=== PATIENT | male | born 1955 | race Caucasian/White ===

== ENCOUNTER → 2020-06-16 16:06 | Outpatient (BNVA) | payer OTHER, SELFPAY | PROVIDERS: PCP Internal Medicine; Visit Provider Surgery | DX: Z76.89 Persons encountering health services in other specified circumstances (principal) ==

== ENCOUNTER → 2020-06-23 10:17 | Outpatient (BNVA) | payer OTHER, SELFPAY | PROVIDERS: PCP Internal Medicine; Referring Provider Internal Medicine; Visit Provider Surgery | DX: L72.3 Sebaceous cyst (principal); L08.9 Local infection of the skin and subcutaneous tissue, unspecified; Z76.89 Persons encountering health services in other specified circumstances ==

== ENCOUNTER → 2020-07-23 10:03 | Outpatient (BNVA) | payer MEDICARE, OTHER, SELFPAY | PROVIDERS: PCP Internal Medicine; Visit Provider Surgery | DX: Z76.89 Persons encountering health services in other specified circumstances (principal) ==

== ENCOUNTER → 2020-08-14 10:02 | Outpatient (BNVA) | payer MEDICARE, OTHER, SELFPAY | PROVIDERS: PCP Internal Medicine; Visit Provider Urology | DX: N40.0 Benign prostatic hyperplasia without lower urinary tract symptoms (principal); R97.20 Elevated prostate specific antigen [PSA]; J30.2 Other seasonal allergic rhinitis; I10 Essential (primary) hypertension; E78.00 Pure hypercholesterolemia, unspecified | CPT/HCPCS: Q3014 ==

== ENCOUNTER 2020-09-01 11:33 | Outpatient (REF) | payer MEDICARE, OTHER, SELFPAY ==
[2020-09-01 11:42] VITALS: BMI 22.6
[2020-09-01 11:44] VITALS: BP 135/93; PULSE 76; RESP 16; TEMP 36.9; O2SAT 97
--- NOTE | 2020-09-01 12:34 | PM.OP ---
Brief Operative Note Date of Service: 09/01/20 Pre-op diagnosis: elevated PSA Post-op diagnosis: same Procedure: TRUS - measure - nerve block prostate - 12 core biopsy Surgeon: Jamshid De La Fuente MD Estimated blood loss (mL): 0 Pathology: other (12 core) Condition: stable Disposition: same day
--- NOTE | 2020-09-01 12:35 | W.PM.OPN ---
Operative Note Operative Note Date of Service: 09/01/20 Narrative: Preoperative diagnosis: Elevated PSA Postoperative diagnosis: Elevated PSA Procedure: 1. transrectal ultrasound measurement of prostate 2. transrectal ultrasound-guided pudendal nerve block 3. transrectal ultrasound-guided prostate biopsy 12 core Surgeon: Dr. Jamshid De La Fuente Anesthetic: Local Indications for procedure: Elevated PSA Prostate Cancer Procedure: After informed consent was verified, the patient was brought into the procedure area and lay left-hand side down on the table. Patient identity confirmed. Perioperative antibiotics confirmed. Gel was placed per rectum Ultrasound probe was placed per rectum The prostate was measured in 3 dimensions Total volume equals 50 gm There were no cystic structures and no calcifications noted and the prostate was homogeneous in nature A ultrasound-guided pudendal nerve block was performed using 10 cc of 1% lidocaine. 8 cc was placed at the base and 2 cc of the apex. A 12 core biopsy was performed with 6 cores each side. Two cores were taken at the apex, mid and base. Cores were spaced between lateral and medial. He tolerated the procedure well. Was able to ambulate to bathroom after 5 minutes. Printed instructions regarding antibiotic use and common side effects such as low-grade temperature and bleeding were given.
[2020-09-01 12:36] VITALS: BP 153/90; PULSE 74; RESP 16; O2SAT 97
== END 2020-09-01 11:34 | disposition home or self-care (01) ==
LOC: HO.MS 11:33
PROVIDERS: PCP Internal Medicine; Visit Provider Urology
PROC: (CPT 55700; principal; 2020-09-01 12:00)
DX: C61 Malignant neoplasm of prostate (principal); R97.20 Elevated prostate specific antigen [PSA]; I10 Essential (primary) hypertension; G47.33 Obstructive sleep apnea (adult) (pediatric); I48.91 Unspecified atrial fibrillation; Z86.73 Personal history of transient ischemic attack (TIA), and cerebral infarction without residual deficits
CPT/HCPCS: 55700; 88305

== ENCOUNTER → 2020-09-08 09:04 | Outpatient (BNVA) | payer MEDICARE, OTHER, SELFPAY | PROVIDERS: PCP Internal Medicine; Visit Provider Urology | DX: Z13.89 Encounter for screening for other disorder (principal) | CPT/HCPCS: Q3014 ==

== ENCOUNTER → 2020-09-23 10:40 | Outpatient (BNVA) | payer MEDICARE, OTHER, SELFPAY | PROVIDERS: PCP Internal Medicine; Visit Provider Urology | CPT/HCPCS: Q3014 ==

== ENCOUNTER → 2020-10-02 08:58 | Outpatient (BNVA) | payer MEDICARE, OTHER, SELFPAY | PROVIDERS: PCP Internal Medicine; Visit Provider Urology | DX: C61 Malignant neoplasm of prostate (principal) | CPT/HCPCS: 96402; 99212; J9217 ==

== ENCOUNTER 2020-11-02 12:23 | Outpatient (REF) | payer MEDICARE, OTHER, SELFPAY ==
[2020-11-02 12:28] VITALS: BMI 23.3
[2020-11-02 12:29] VITALS: BP 150/75; PULSE 76; RESP 16; TEMP 36.8; O2SAT 98
[2020-11-02 13:00] VITALS: BP 129/82; PULSE 78; RESP 16; O2SAT 98
--- NOTE | 2020-11-02 13:31 | PM.OP ---
Brief Operative Note Date of Service: 11/02/20 Pre-op diagnosis: Prostate cancer Post-op diagnosis: same Procedure: Gold seed marker implant Surgeon: Jamshid De La Fuente MD Anesthesia: local Estimated blood loss (mL): 0 Pathology: none sent Condition: stable Disposition: same day
--- NOTE | 2020-11-02 13:32 | W.PM.OPN ---
Operative Note Operative Note Date of Service: 11/02/20 Narrative: Preoperative diagnosis: Prostate cancer Postoperative diagnosis: Prostate cancer Procedure: 1. Transrectal ultrasound-guided pudendal nerve block 2. Transrectal ultrasound-guided gold seed placement Surgeon: Dr. Jamshid De La Fuente Anesthetic: Local Indications for procedure: Prostate Cancer Procedure: After informed consent was verified, the patient was brought into the procedure area and lay left-hand side down on the table. Patient identity confirmed. Perioperative antibiotics confirmed. Gel was placed per rectum Ultrasound probe was placed per rectum A ultrasound-guided pudendal nerve block was performed using 10 cc of 1% lidocaine. 8 cc was placed at the base and 2 cc of the apex. 3 gold seed markers placed. 2 on the right, 1 on the left. The purpose is for triangulation. He tolerated the procedure well. Was able to ambulate to bathroom after 5 minutes. Printed instructions regarding antibiotic use and common side effects such as low-grade temperature and bleeding were given
== END 2020-11-02 12:24 | disposition home or self-care (01) ==
LOC: HO.MS 12:23
PROVIDERS: PCP Internal Medicine; Visit Provider Urology
PROC: (CPT 55876; principal; 2020-11-02 13:20)
DX: C61 Malignant neoplasm of prostate (principal); N40.0 Benign prostatic hyperplasia without lower urinary tract symptoms; I48.91 Unspecified atrial fibrillation; I10 Essential (primary) hypertension; I69.90 Unspecified sequelae of unspecified cerebrovascular disease; G47.33 Obstructive sleep apnea (adult) (pediatric); Z99.89 Dependence on other enabling machines and devices; Z79.899 Other long term (current) drug therapy; Z86.16 Personal history of COVID-19
CPT/HCPCS: 55876; 55700; A4648

== ENCOUNTER → 2021-02-05 10:18 | Outpatient (BNVA) | payer MEDICARE, OTHER, SELFPAY | PROVIDERS: PCP Internal Medicine; Visit Provider Urology | DX: C61 Malignant neoplasm of prostate (principal) | CPT/HCPCS: 51798; 99212 ==

== ENCOUNTER → 2021-05-07 08:58 | Outpatient (BNVA) | payer MEDICARE, OTHER, SELFPAY | PROVIDERS: PCP Internal Medicine; Visit Provider Urology | DX: Z13.89 Encounter for screening for other disorder (principal) | CPT/HCPCS: Q3014 ==

== ENCOUNTER → 2021-09-07 08:28 | Outpatient (BNVA) | payer MEDICARE, OTHER, SELFPAY | PROVIDERS: PCP Internal Medicine; Visit Provider Urology | DX: C61 Malignant neoplasm of prostate (principal); N40.0 Benign prostatic hyperplasia without lower urinary tract symptoms | CPT/HCPCS: Q3014 ==

== ENCOUNTER → 2022-01-07 08:18 | Outpatient (BNVA) | payer MEDICARE, OTHER, SELFPAY | PROVIDERS: PCP Internal Medicine; Visit Provider Urology | DX: C61 Malignant neoplasm of prostate (principal) | CPT/HCPCS: Q3014 ==

== ENCOUNTER → 2022-05-10 08:25 | Outpatient (BNVA) | payer MEDICARE, OTHER, SELFPAY | PROVIDERS: PCP Internal Medicine; Visit Provider Urology | DX: C61 Malignant neoplasm of prostate (principal) | CPT/HCPCS: Q3014 ==

== ENCOUNTER → 2022-09-08 09:21 | Outpatient (BNVA) | payer MEDICARE, OTHER, SELFPAY | PROVIDERS: PCP Internal Medicine; Visit Provider Urology | DX: C61 Malignant neoplasm of prostate (principal) | CPT/HCPCS: Q3014 ==

== ENCOUNTER 2023-01-26 09:26 | Outpatient (AMB) | payer MEDICARE, OTHER, SELFPAY ==
--- NOTE | 2023-01-26 11:11 | A.OFFVIS_ITS ---
Intake Intake Visit Reasons: 4M PSA(set) Allergies Seasonal Allergy (Unknown, Uncoded 09/08/22 09:21) nka HPI HPI Comments History of Present Illness Details Pete is a very pleasant male. He is a patient of Dr. Maldonado. He is seen for the following urologic conditions. - prostate cancer Telephone evaluation 15 minute consultation [facility] Video attempted 09/29 PSA 0.2, T 517, 01/29 PSA 0.1 Full recovery of testosterone Continue good PSA response 6m PSA Prostate cancer low volume favorable intermediate risk September 2020 - external beam radiation with short term [facility] Recent Labs - 04/29 PSA <0.1, T 23, 08/31 PSA 0.1 T 844, 12/29 0.1, 04/30 <0.1, 09/01 0.2, T 517 Adenocarcinoma of the prostate (T1c N0 M0, Ann score 3+4, Grade Group 2. PSA at Diagnosis 4.9 on 5AR - NCCN favorable intermediate Prostate cancer was diagnosed Dr De La Fuente 09/27 Family history brother with prostate cancer initial treatment prostatectomy with delayed failure and radiation 6 years after Last GnRH 10/02/20 Histologic type: Adenocarcinoma (acinar type) Mayer score: 3+4=7 (left mid medial), 3+3=6 (left base lateral, left base medial, left mid lateral, left apex lateral, right base lateral) Number cores positive: 6 Total number of cores: 12 % of tissue involved: Approximately 15% of all tissue examined Periprostatic fat inv.: Not identified Seminal vesicle inv.: Not identified Perineural inv.: Present LVI: Not identified Initial therapy external beam radiation with short course GnRH - Sister Margaret complete 12/28 - [address] [facility] DNA evaluation performed for mutation negative for BRCA1 and Sosa Plan on surveillance laboratories [facility] Medical History Atrial fibrillation BPH (benign prostatic hyperplasia) History of CVA with residual deficit HTN (hypertension) Hypercholesterolemia Infected sebaceous cyst Obstructive sleep apnea treated with continuous positive airway pressure (CPAP) Surgical History Hx of chest tube placement Hx of hernia repair Family History Father Stroke Mother Cancer Sister No problems noted. Sister No problems noted. Sister No problems noted. Sister No problems noted. Sister No problems noted. Sister No problems noted. Brother No problems noted. Brother No problems noted. Brother No problems noted. Brother No problems noted. Daughter No problems noted. Daughter No problems noted. Social History Alcohol intake: current Alcohol intake frequency: a few times a week Advance Directives Date on File: 09/01/20 Review of Systems Const All systems reviewed & are unremarkable except as noted in HPI and below Reports no additional complaints Resp Reports no additional complaints GI Reports no additional complaints Reports as per HPI Musc Reports no additional complaints Physical Exam Telemedicine evaluation Appropriate responses Regular breathing rate and rhythm HEENT Head: Yes normal to inspection Ears: hearing grossly normal bilaterally Eyes General: appearance normal, both eyes and all related structures Neck Neck: Yes normal visual inspection Chest Chest palpation & inspection: normal inspection of the chest Resp Effort & Inspection: normal respiratory effort and able to speak in complete sentences Assessment & Plan Assessment & Plan (1) Prostate cancer: Comment: 09/27 Favorable Intermediate EXBRT with [address] [place] [address] Code(s): C61 - Malignant neoplasm of prostate Plan Six month follow-up PSA Patient Instructions: Imaging studies, laboratory and physical exam results were discussed and revi ewed in detail. No major barriers to patient understanding were identified. An opportunity to ask questions regarding the treatment plan was provided. All questions were answered. The patient expressed understanding and agreement with the above treatment plan. The patient is aware they should contact our office by phone for worsening of their current condition or the appearance of new urologic symptoms. Compliance is encouraged with any medications and followup testing that is ordered. It is a privilege to participate in the urologic care of your patient. If you have any questions or concerns regarding treatment for the above conditions, or other urologic issues, please do not hesitate to contact me. The office telephone contact is [phone]. This note is constructed using voice recognition software. While every effort has been made to ensure accuracy surgery aid errors may have been included. Yours sincerely, Dr Jamshid De La Fuente MD, [facility] - Urology Providers of Expert, Compassionate Care for the Genitourinary System Telehealth Telehealth Location of provider rendering services: practice address Location of patient: address on file Patient Identification confirmed using: Name, : Yes Telehealth method: video Patient verbally consented to treatment: Yes Patient verbally consented to billing insurance company: Yes Patient informed of any privacy concerns related to visit: Yes Coding Level of Care Code Tele Est Pt Level 3 (26208) Diagnoses Prostate cancer C61
== END 2023-01-26 11:32 | disposition home or self-care (01) ==
LOC: HO.HUSH 09:26
PROVIDERS: PCP Internal Medicine; Visit Provider Urology
DX: C61 Malignant neoplasm of prostate (principal)
CPT/HCPCS: 99213

== ENCOUNTER → 2023-01-26 09:26 | Outpatient (BNVA) | payer MEDICARE, OTHER, SELFPAY | PROVIDERS: PCP Internal Medicine; Visit Provider Urology | DX: C61 Malignant neoplasm of prostate (principal) | CPT/HCPCS: Q3014 ==

== ENCOUNTER 2023-08-02 10:18 | Outpatient (AMB) | payer MEDICARE, OTHER, SELFPAY ==
--- NOTE | 2023-08-02 10:19 | MHC.OFFVIS ---
Intake Intake Visit Reasons: 6m/PSA(SET) Intake Note: Patient is Present for Telephone Follow Up PSA Urology Med: Tamsulsoin Antibiotic Allergy: None Blood Thinner: Eliquis Allergies Seasonal Allergy (Unknown, Uncoded 08/02/23 10:20) nka Medication List - Last Reconciled 08/02/23 by Jamshid De La Fuente MD apixaban (Eliquis) 5 mg PO BID atorvastatin 40 mg PO DAILY furosemide 20 mg PO DAILY ketorolac 0.5% 1 drp ophthalmic (eye) QID metoprolol tartrate 100 mg PO BID sodium,potassium,mag sulfates 17.5-3.13-1.6 gram 6 mL PO BID tamsulosin 0.4 mg PO DAILY HPI HPI Comments History of Present Illness Details Pete is a very pleasant male. He is a patient of Dr. Maldonado. He is seen for the following urologic conditions. - prostate cancer - lower urinary tract symptoms Telephone evaluation 15 minute consultation [facility] Video attempted 09/29 PSA 0.2, T 517, 01/29 PSA 0.1, 08/02 0.2 Full recovery of testosterone Continue good PSA response Continues tamsulosin for lower urinary tract symptoms 6m PSA Prostate cancer low volume favorable intermediate risk September 2020 - external beam radiation with short term [facility] Recent Labs - 04/29 PSA <0.1, T 23, 08/31 PSA 0.1 T 844, 12/29 0.1, 04/30 <0.1, 09/01 0.2, T 517 Adenocarcinoma of the prostate (T1c N0 M0, Ann score 3+4, Grade Group 2. PSA at Diagnosis 4.9 on 5AR - NCCN favorable intermediate Prostate cancer was diagnosed Dr De La Fuente 09/27 Family history brother with prostate cancer initial treatment prostatectomy with delayed failure and radiation 6 years after Last GnRH 10/02/20 Histologic type: Adenocarcinoma (acinar type) Ann score: 3+4=7 (left mid medial), 3+3=6 (left base lateral, left base medial, left mid lateral, left apex lateral, right base lateral) Number cores positive: 6 Total number of cores: 12 % of tissue involved: Approximately 15% of all tissue examined Periprostatic fat inv.: Not identified Seminal vesicle inv.: Not identified Perineural inv.: Present LVI: Not identified Initial therapy external beam radiation with short course GnRH - Sister Margaret complete 12/28 - [address] DNA evaluation performed for mutation negative for BRCA1 and Sosa Plan on surveillance laboratories q.6 months for 5 years [facility] Medical History Infected sebaceous cyst BPH (benign prostatic hyperplasia) Hypercholesterolemia HTN (hypertension) Obstructive sleep apnea treated with continuous positive airway pressure (CPAP) History of CVA with residual deficit Atrial fibrillation Surgical History Hx of hernia repair Hx of chest tube placement Family History Father Stroke Mother Cancer Sister No problems noted. Sister No problems noted. Sister No problems noted. Sister No problems noted. Sister No problems noted. Sister No problems noted. Brother No problems noted. Brother No problems noted. Brother No problems noted. Brother No problems noted. Daughter No problems noted. Daughter No problems noted. Social History Alcohol intake: current Alcohol intake frequency: a few times a week Advance Directives Date on File: 09/01/20 Review of Systems Const Denies chills and Denies fever(s) Card Reports no additional complaints and Denies syncope Resp Denies cough GI Denies abdominal pain and Denies heartburn Reports as per HPI and Denies change in libido Neuro Denies syncope Psych Denies change in libido Endo Denies change in libido Physical Exam Const General: cooperative, healthy appearing, comfortable and no acute distress Orientation/consciousness: patient oriented x3 HEENT Face and sinus: Yes normal facial exam Mouth: moist mucous membranes Neck Neck: Yes normal visual inspection, Yes full ROM and Yes trachea midline Chest Chest palpation & inspection: normal inspection of the chest Resp Effort & Inspection: normal respiratory effort, able to speak in complete sentences and no respiratory distress GI Inspection: Yes normal to inspection Back/Spine/Pelvis Cervical Spine: normal cervical lordosis Thoracic/Lumbar Spine: thoracic and lumbar spine normal to inspection Skin General skin exam: no rashes or lesions noted Neuro General: patient oriented x3, gait normal, tone normal and moves all extremities Extrem General: Yes normal to inspection and Yes capillary refill normal Assessment & Plan Assessment & Plan (1) BPH (benign prostatic hyperplasia): Code(s): N40.0 - Benign prostatic hyperplasia without lower urinary tract symptoms (2) Prostate cancer: Comment: 09/27 Favorable Intermediate EXBRT with [address] [place] [address] Code(s): C61 - Malignant neoplasm of prostate Plan Six-month follow-up PSA office Orders: Orders Prostate Specific Antigen 6 Months C61 - Malignant neoplasm of prostate Patient Instructions: Imaging studies, laboratory and physical exam results were discussed and reviewed in detail. No major barriers to patient understanding were identified. An opportunity to ask questions regarding the treatment plan was provided. All questions were answered. The patient expressed understanding and agreement with the above treatment plan. The patient is aware they should contact our office by phone for worsening of their current condition or the appearance of new urologic symptoms. Compliance is encouraged with any medications and followup testing that is ordered. It is a privilege to participate in the urologic care of your patient. If you have any questions or concerns regarding treatment for the above conditions, or other urologic issues, please do not hesitate to contact me. The office telephone contact is [phone]. This note is constructed using voice recognition software. While every effort has been made to ensure accuracy hydraulic blocker errors may have been included. Yours sincerely, Dr Jamshid De La Fuente MD, [facility] - Urology Providers of Expert, Compassionate Care for the Genitourinary System Telehealth Telehealth Location of provider rendering services: practice address Location of patient: address on file Patient Identification confirmed using: Name, : Yes Telehealth method: video Patient verbally consented to treatment: Yes Patient verbally consented to billing insurance company: Yes Patient informed of any privacy concerns related to visit: Yes Coding Level of Care Code Tele Est Pt Level 3 (91883) Diagnoses BPH (benign prostatic hyperplasia) N40.0 Prostate cancer C61
== END 2023-08-02 11:25 | disposition home or self-care (01) ==
LOC: HO.HUSH 10:18
PROVIDERS: PCP Internal Medicine; Visit Provider Urology
DX: N40.0 Benign prostatic hyperplasia without lower urinary tract symptoms (principal); C61 Malignant neoplasm of prostate
CPT/HCPCS: 99213

== ENCOUNTER → 2023-08-02 10:18 | Outpatient (BNVA) | payer MEDICARE, OTHER, SELFPAY | PROVIDERS: PCP Internal Medicine; Visit Provider Urology ==

== ENCOUNTER 2024-02-02 09:06 | Outpatient (AMB) | payer MEDICARE, OTHER, SELFPAY ==
--- NOTE | 2024-02-02 09:04 | A.OFFVIS_ITS ---
Intake Visit Reasons: 6M Follow Up-psa(set) Intake Note: Patient is Present for Telephone Follow Up PSA Urology Med: Tamsulsoin Antibiotic Allergy: None Blood Thinner: Eliquis Desulfurizer Hand Required: No Allergies Seasonal Allergy (Unknown, Uncoded 02/02/24 09:04) nka HPI Comments Details: Pete is a very pleasant male. He is a patient of Dr. Maldonado. He is seen for the following urologic conditions. - prostate cancer - lower urinary tract symptoms Telephone evaluation 15 minute consultation [facility] Video attempted 09/29 PSA 0.2, T 517, 01/29 PSA 0.1, 08/02 0.2, 01/30 0.2 Full recovery of testosterone Continue good PSA response Continues tamsulosin for lower urinary tract symptoms 6m PSA Prostate cancer low volume favorable intermediate risk September 2020 - external beam radiation with short term [facility] Recent Labs - 04/29 PSA <0.1, T 23, 08/31 PSA 0.1 T 844, 12/29 0.1, 04/30 <0.1, 09/01 0.2, T 517, 01/30 0.2 Adenocarcinoma of the prostate (T1c N0 M0, Haynes score 3+4, Grade Group 2. PSA at Diagnosis 4.9 on 5AR - NCCN favorable intermediate Prostate cancer was diagnosed Dr De La Fuente 09/27 Family history brother with prostate cancer initial treatment prostatectomy with delayed failure and radiation 6 years after Last GnRH 10/02/20 Histologic type: Adenocarcinoma (acinar type) Haynes score: 3+4=7 (left mid medial), 3+3=6 (left base lateral, left base medial, left mid lateral, left apex lateral, right base lateral) Number cores positive: 6 Total number of cores: 12 % of tissue involved: Approximately 15% of all tissue examined Periprostatic fat inv.: Not identified Seminal vesicle inv.: Not identified Perineural inv.: Present LVI: Not identified Initial therapy external beam radiation with short course GnRH - Sister Margaret complete 12/28 - [address] DNA evaluation performed for mutation negative for BRCA1 and Sosa Plan on surveillance laboratories q.6 months for 5 years COUNT [facility]CLUDES [facility] Medical History Infected sebaceous cyst BPH (benign prostatic hyperplasia) Hypercholesterolemia HTN (hypertension) Obstructive sleep apnea treated with continuous positive airway pressure (CPAP) History of CVA with residual deficit Atrial fibrillation Surgical History Hx of hernia repair Hx of chest tube placement Family History Father Stroke Mother Cancer Sister No problems noted. Sister No problems noted. Sister No problems noted. Sister No problems noted. Sister No problems noted. Sister No problems noted. Brother No problems noted. Brother No problems noted. Brother No problems noted. Brother No problems noted. Daughter No problems noted. Daughter No problems noted. Social History Alcohol intake: current Alcohol intake frequency: a few times a week Advance Directives Date on File: 09/01/20 Review of Systems Const All systems reviewed & are unremarkable except as noted in HPI and below Reports no additional complaints Resp Reports no additional complaints GI Reports no additional complaints Reports as per HPI Musc Reports no additional complaints Physical Exam Telemedicine evaluation Appropriate responses Regular breathing rate and rhythm HEENT Head: Yes normal to inspection Ears: hearing grossly normal bilaterally Eyes General: appearance normal, both eyes and all related structures Neck Neck: Yes normal visual inspection Chest Chest palpation & inspection: normal inspection of the chest Resp Effort & Inspection: normal respiratory effort and able to speak in complete sentences Telehealth Telehealth Telehealth Platform: [facility] Location of provider rendering services: practice address Location of patient: address on file Patient Identification confirmed using: Name, : Yes Telehealth method: video Patient verbally consented to treatment: Yes Patient verbally consented to billing insurance company: Yes Patient informed of any privacy concerns related to visit: Yes Minutes spent on Phone/Video with Pt.: 15 Assessment & Plan Assessment & Plan (1) Prostate cancer: Comment: 09/27 Favorable Intermediate EXBRT with [address] [place] [address] Code(s): C61 - Malignant neoplasm of prostate Category: Medical Plan Six-month follow-up PSA Orders: Orders Prostate Specific Antigen 6 Months C61 - Malignant neoplasm of prostate Patient Instructions: Imaging studies, laboratory and physical exam results were discussed and reviewed in detail. No major barriers to patient understanding were identified. An opportunity to ask questions regarding the treatment plan was provided. All questions were answered. The patient expressed understanding and agreement with the above treatment plan. The patient is aware they should contact our office by phone for worsening of their current condition or the appearance of new urologic symptoms. Compliance is encouraged with any medications and followup testing that is ordered. It is a privilege to participate in the urologic care of your patient. If you have any questions or concerns regarding treatment for the above conditions, or other urologic issues, please do not hesitate to contact me. The office telephone contact is [phone]. This note is constructed using voice recognition software. While every effort has been made to ensure accuracy profiler operator errors may have been included. Yours sincerely, Dr Jamshid De La Fuente MD, [facility] - Urology Providers of Expert, Compassionate Care for the Genitourinary System Coding Level of Care Code Tele Est Pt Level 3 (56969) Diagnoses Prostate cancer C61
== END 2024-02-02 09:57 | disposition home or self-care (01) ==
LOC: HO.HUSH 09:06
PROVIDERS: PCP Internal Medicine; Visit Provider Urology
DX: C61 Malignant neoplasm of prostate (principal)
CPT/HCPCS: 99213

== ENCOUNTER → 2024-02-02 09:06 | Outpatient (BNVA) | payer MEDICARE, OTHER, SELFPAY | PROVIDERS: PCP Internal Medicine; Visit Provider Urology ==

== ENCOUNTER 2024-08-06 08:34 | Outpatient (AMB) | payer MEDICARE, OTHER, SELFPAY ==
--- NOTE | 2024-08-06 08:43 | A.OFFVIS_ITS ---
Intake Visit Reasons: 6M PSA/PVR(set) Intake Note: Patient is present for 6M PSA/PVR Urology Medication:TAMSULOSIN Antibiotic Allergy:NONE Blood Thinner:APIXABAN Todays PVR:52ML'S Shipping Processor Required: No Allergies Seasonal Allergy (Unknown, Uncoded 08/06/24 08:44) nka HPI Comments Details: Pete is a very pleasant male. He is a patient of Dr. Maldonado. He is seen for the following urologic conditions. - prostate cancer - lower urinary tract symptoms Discussed potential for gross hematuria in setting of anticoagulation and radiation to bladder They would hold anticoagulation for 48 hours and push fluids Will call if episode occurs Otherwise six-month follow-up 09/29 PSA 0.2, T 517, 01/29 PSA 0.1, 08/02 0.2, 01/30 0.2, 08/03 0.2 Full recovery of testosterone Continue good PSA response Continues tamsulosin for lower urinary tract symptoms 6m PSA Prostate cancer low volume favorable intermediate risk September 2020 - external beam radiation with short term [facility] Recent Labs - 04/29 PSA <0.1, T 23, 08/31 PSA 0.1 T 844, 12/29 0.1, 04/30 <0.1, 09/01 0.2, T 517, 01/30 0.2 Adenocarcinoma of the prostate (T1c N0 M0, Cairo score 3+4, Grade Group 2. PSA at Diagnosis 4.9 on 5AR - NCCN favorable intermediate Prostate cancer was diagnosed Dr De La Fuente 09/27 Family history brother with prostate cancer initial treatment prostatectomy with delayed failure and radiation 6 years after Last GnRH 10/02/20 Histologic type: Adenocarcinoma (acinar type) Cairo score: 3+4=7 (left mid medial), 3+3=6 (left base lateral, left base medial, left mid lateral, left apex lateral, right base lateral) Number cores positive: 6 Total number of cores: 12 % of tissue involved: Approximately 15% of all tissue examined Periprostatic fat inv.: Not identified Seminal vesicle inv.: Not identified Perineural inv.: Present LVI: Not identified Initial therapy external beam radiation with short course GnRH - Sister Margaret complete 12/28 - 7800 Mina DNA evaluation performed for mutation negative for BRCA1 and Sosa Plan on surveillance laboratories q.6 months for 5 years ON LICENSE OF [facility] Medical History Infected sebaceous cyst BPH (benign prostatic hyperplasia) Hypercholesterolemia HTN (hypertension) Obstructive sleep apnea treated with continuous positive airway pressure (CPAP) History of CVA with residual deficit Atrial fibrillation Surgical History Hx of hernia repair Hx of chest tube placement Family History Father Stroke Mother Cancer Sister No problems noted. Sister No problems noted. Sister No problems noted. Sister No problems noted. Sister No problems noted. Sister No problems noted. Brother No problems noted. Brother No problems noted. Brother No problems noted. Brother No problems noted. Daughter No problems noted. Daughter No problems noted. Social History Alcohol intake: current Alcohol intake frequency: a few times a week Advance Directives Date on File: 09/01/20 Review of Systems Const Denies chills and Denies fever(s) Card Reports no additional complaints and Denies syncope Resp Denies cough GI Denies abdominal pain and Denies heartburn Reports as per HPI and Denies change in libido Neuro Denies syncope Psych Denies change in libido Endo Denies change in libido Physical Exam Const General: cooperative, healthy appearing, comfortable and no acute distress Orientation/consciousness: patient oriented x3 HEENT Face and sinus: Yes normal facial exam Mouth: moist mucous membranes Neck Neck: Yes normal visual inspection, Yes full ROM and Yes trachea midline Chest Chest palpation & inspection: normal inspection of the chest Resp Effort & Inspection: normal respiratory effort, able to speak in complete sentences and no respiratory distress GI Inspection: Yes normal to inspection Back/Spine/Pelvis Cervical Spine: normal cervical lordosis Thoracic/Lumbar Spine: thoracic and lumbar spine normal to inspection Skin General skin exam: no rashes or lesions noted Neuro General: patient oriented x3, gait normal, tone normal and moves all extremities Extrem General: Yes normal to inspection and Yes capillary refill normal Office Procedures Post Void Residual Post Residual Void Post Void Residual (PVR): 52 [id number] Void Residual by ultrasound Results AMB Urinalysis, Automated UA Leukoctes 15 Wolf/uL Last Edit by WOOD Woodson on 08/06/24 09:01 UA Nitrite Negative Last Edit by WOOD Woodson on 08/06/24 09:01 UA Urobilinogen 0.2 mg/dL Last Edit by WOOD Woodson on 08/06/24 09:0 1 UA Protein 15 mg/dL Last Edit by WOOD Woodson on 08/06/24 09:01 UA pH 6.5 Last Edit by WOOD Woodson on 08/06/24 09:01 UA Blood 200 Cristopher/uL Last Edit by WOOD Woodson on 08/06/24 09:01 UA Specific [place] 1.010 Last Edit by WOOD Woodson on 08/06/24 09: 01 UA Ketone Negative Last Edit by WOOD Woodson on 08/06/24 09:01 UA Bilirubin 0 mg/dL Last Edit by WOOD Woodson on 08/06/24 09:01 UA Glucose 0 mg/dL Last Edit by WOOD Woodson on 08/06/24 09:01 Results Reviewed Results Reviewed: Laboratory Last Values Urine pH (Auto) 6.5 08/06/24 09:00 Specific [place] (Auto) 1.010 08/06/24 09:00 Urine Protein (Auto) 15 mg/dL 08/06/24 09:00 Glucose (UA)(Auto) 0 mg/dL 08/06/24 09:00 Urine Ketones (Auto) Negative 08/06/24 09:00 Urine Blood (Auto) 200 Cristopher/uL 08/06/24 09:00 Urine Nitrite (Auto) Negative 08/06/24 09:00 Urine Bilirubin (Auto) 0 mg/dL 08/06/24 09:00 Urine Urobilinogen (Auto) 0.2 mg/dL 08/06/24 09:00 Leukocyte Esterase (Auto) 15 Wolf/uL 08/06/24 09:00 Assessment & Plan Assessment & Plan (1) Prostate cancer: Comment: 09/27 Favorable Intermediate EXBRT with [address] [place] [address] Code(s): C61 - Malignant neoplasm of prostate Category: Medical Plan Six-month follow-up PSA office Orders: Orders AMB Urinalysis Automated Today Z13.9 - Encounter for screening, unspecified Prostate Specific Antigen 6 Months C61 - Malignant neoplasm of prostate Patient Instructions: Imaging studies, laboratory and physical exam results were discussed and reviewed in detail. No major barriers to patient understanding were identified. An opportunity to ask questions regarding the treatment plan was provided. All questions were answered. The patient expressed understanding and agreement with the above treatment plan. The patient is aware they should contact our office by phone for worsening of their current condition or the appearance of new urologic symptoms. Compliance is encouraged with any medications and followup testing that is ordered. It is a privilege to participate in the urologic care of your patient. If you have any questions or concerns regarding treatment for the above conditions, or other urologic issues, please do not hesitate to contact me. The office telephone contact is [phone]. This note is constructed using voice recognition software. While every effort has been made to ensure accuracy military aircraft designer errors may have been included. Yours sincerely, Dr Jamshid De La Fuente MD, [facility] - Urology Providers of Expert, Compassionate Care for the Genitourinary System Coding Level of Care Code Est Pt Level 3 (91397) Diagnoses Prostate cancer C61 CPT Codes Post Residual Void - PVR CPT Code: 28184-Doej Void Residual by ultrasound ([id number])
--- OUTSIDE RECORDS SUMMARY | 2024-08-06 08:55 | XMS_ITS | Clinical Summary ---
Author Organization [facility] Address [address] [place] [address] Care Team Providers Care Foam Fabricator Name Role Phone Hever Maldonado Primary Care Provider Allergies No known active allergies Medications amoxicillin-cla vulanate (AUGMENTIN) 875-125 mg tablet Take 875 mg by mouth 2 times a day. 0 Active azithromycin (ZITHROMAX) 250 mg tablet 0 Active cephalexin (KEFLEX) 500 mg capsule TK 1 C PO TID 0 Active ciprofloxacin (CIPRO) 500 mg tablet TAKE 1 TABLET BY MOUTH TWICE DAILY FOR 4 DAYS. START ANTIBIOTICS DAY BEFORE PROCEDURE 1 Active digoxin (LANOXIN) 125 mcg (0.125 mg) tablet Take 125 mcg by mouth daily. 0 Active doxycycline hyclate (VIBRAMYCIN) 100 mg capsule TK 1 C PO BID 0 Active finasteride (PROSCAR) 5 mg tablet Take 5 mg by mouth daily. 1 Active Suprep Bowel Prep Kit solution TAKE 6 OUNCES BY MOUTH TWICE DAILY FOLLOW INSTRUCTIONS PROVIDED BY DOCTOR IN OFFICE 1 Active Social History Tobacco Use Types Packs/Day Years Used Date Smoking Tobacco: Never Assessed Sex and Gender Information Value Date Recorded Sex Assigned at Not on file Legal Sex Male 8:31 AM EST Gender Identity Not on file Sexual Orientation Not on file Last Filed Vital Signs Vital Sign Reading Time Taken Comments Blood Pressure 130/71 09/11/2020 8:43 AM EST Pulse 69 09/11/2020 8:43 AM EST Temperature 36.8 ??C (98.2 ??F) 09/11/2020 8:43 AM ES T Respiratory Rate 16 09/11/2020 8:43 AM EST Oxygen Saturation 98% 09/11/2020 8:43 AM EST Inhaled Oxygen Concentration - - Weight 77 kg (169 lb 12.8 oz) 09/11/2020 8:43 AM EST Height 181.6 cm (5' 11.5 ) 09/11/2020 8:43 AM ES T Body Mass Index 23.35 09/11/2020 8:43 AM EST Plan of Treatment Health Maintenance Due Date Last Done Comments Cologuard 1955 Colon Cancer Screening 1955 Colonoscopy 1955 FOBT / Fit Test 1953 Sigmoidoscopy 1953 DTaP,Tdap,and Td Vaccines (1 - Tdap) 1975 Zoster Vaccines (1 of 2) 2003 Pneumococcal Vaccine: 65+ Ye ars (1 of 1 - PCV) 2018 COVID-19 Vaccine (2 - 2023-2 5 season) 2024 09/05/2020 Influenza Vaccine (#1) 2024 04/29/2017 Alcohol/Substance Use Screening 07/10/2024 Health Care Proxy Review 07/10/2024 RSV Vaccine (60+ years old a nd patients) (1 - 1-dose 75+ series) 2028 Hepatitis B Vaccines Aged Out No long er eligible based on patient's age to complete this topic Insurance MEDICARE [facility] Care Teams Foam Fabricator Relationship Specialty Start Date End Date Hever Maldonado PCP - General Internal Medicine 09/07/20
--- OUTSIDE RECORDS SUMMARY | 2024-08-06 08:55 | XMS_ITS | Referral Summary ---
Author Organization [facility] Address [address] [place] [address] Care Team Providers Care Steam Fitter Supervisor Name Role Phone Hever Maldonado Primary Care Provider [phone] Allergies No known active allergies Medications amoxicillin-cla [...] 09/11/2020 8:43 AM EST Plan of Treatment Not on file Insurance MEDICARE [facility] Care Teams Steam Fitter Supervisor Relationship Specialty Start Date End Date Hever Maldonado PCP - General Internal Medicine 09/07/20
--- OUTSIDE RECORDS SUMMARY | 2024-08-06 08:55 | XMS_ITS | Clinical Summary ---
Author Organization [facility] Address [address] [place] [address] Care Team Providers Care Wind Energy Engineer Name Role Phone Hever Maldonado MD Primary Care Provider [phone] Allergies No known active allergies Medications Medication Sig Dispensed Refills Start Date End Date Status Pumpkin Seed-Soy Germ (AZO BLADDER CONTROL/GO-LESS PO) Take by mouth. 0 A ctive apixaban (ELIQUIS) 5 MG TABS tablet Take by mouth every 12 (twelve) hours. 0 Active finasteride (PROSCAR) 5 MG tablet Take 5 mg by mouth daily. 0 Active furosemide (LASIX) 20 MG tablet Take 20 mg by mouth 2 (two) times a day. 0 Active atorvastatin (LIPITOR) tablet 40 mg Take 40 mg by mouth daily. 0 Active tamsulosin (FLOMAX) 0.4 MG CAPS Take 0.4 mg by mouth daily. 0 Active calcium citrate-vitamin D (CITRACAL+D) 315-200 MG-UNIT per tablet Take 1 tablet by mouth 2 (two) times a day. 0 Active metoprolol tartrate (LOPRESSOR) 50 MG tablet Take 50 mg by mouth 2 (two) times a day. 0 Active Active Problems Problem Noted Date Diagnosed Date Prostate cancer 09/16/2020 Social History Tobacco Use Types Packs/Day Years Used Date Smoking Tobacco: Never Smokeless Tobacco: Never Alcohol Use Standard Drinks/Week Comments Yes 2 (1 standard drink = 0.6 oz pur e alcohol) Sex and Gender Information Value Date Recorded Sex Assigned at Not on file Gender Identity Not on file Sexual Orientation Not on file Job Start Date Occupation Industry Not on file Not on file Not on file Last Filed Vital Signs Vital Sign Reading Time Taken Comments Blood Pressure 140/71 08/12/2021 9:27 AM EST Pulse 44 08/12/2021 9:27 AM EST Temperature 36.7 ??C (98 ??F) 08/12/2021 9:27 AM EST Respiratory Rate - - Oxygen Saturation 97% 08/12/2021 9:27 AM EST Inhaled Oxygen Concentration - - Weight 80.7 kg (178 lb) 08/12/2021 9:27 AM EST Height 181.6 cm (5' 11.5 ) 08/12/2021 9:27 AM ES T Body Mass Index 24.48 08/12/2021 9:27 AM EST Plan of Treatment Health Maintenance Due Date Last Done Comments Hepatitis C Screening 1953 COVID-19 Vaccine (#1) 1958 Depression Screening 1965 Preventative Health Evaluation 1971 DTap / Tdap / Td (1 - Tdap) 1972 Shingrix-Zoster Vaccine (1 of 2) 1972 Colon Cancer Screening (Colonoscopy) 1998 Pneumococcal Vaccine (2 of 2 - PCV) 05/10/2015 05/10/2014 Fall Risk Assessment 2018 Influenza Vaccine (#1) 2024 RSV Adult > 60+ Yrs or Pregn ant (1 - 1-dose 75+ series) 2028 Hepatitis B Vaccines Aged Out No long er eligible based on patient's age to complete this topic RSV Ped < 20 months Aged Out No longe r eligible based on patient's age to complete this topic Care Teams Wind Energy Engineer Relationship Specialty Start Date End Date Hever Maldonado MD [address] [address] PCP - General Internal Medicine 09/16/20
--- OUTSIDE RECORDS SUMMARY | 2024-08-06 08:55 | XMS_ITS | Clinical Summary ---
Author Organization [facility] [place] [address] Care Team Providers Care Boring Mill Set Up Operator Vertical Name Role Phone Hever Maldonado MD Primary Care Provider Surgical History Surgery Date Site/Laterality Comments HERNIA REPAIR 2015 Right PROCEDURE: HISTORICAL HERNIA REPAIR/ING Medical History Medical History Date Comments BPH (benign prostatic hyperplasia) DX:BPH (benign prostatic hyperplasia) Family History Medical History Relation Name Comments COPD Brother Stroke Father Breast cancer Mother Stroke Sister Relation Name Status Comments Brother Father Mother Sister Social History Tobacco Use Types Packs/Day Years Used Date Smoking Tobacco: Never Smokeless Tobacco: Never Alcohol Use Standard Drinks/Week Comments Yes 0 (1 standard drink = 0.6 oz pur e alcohol) Sex and Gender Information Value Date Recorded Sex Assigned at Not on file Gender Identity Not on file Sexual Orientation Not on file Obstetrics History Last Filed Vital Signs Vital Sign Reading Time Taken Comments Blood Pressure 126/80 04/22/2024 1:24 PM EDT Pulse 68 09/29/2023 11:01 AM EDT Temperature - - Respiratory Rate - - Oxygen Saturation - - Inhaled Oxygen Concentration - - Weight 81.6 kg (180 lb) 04/22/2024 1:24 PM EDT Height 180.3 cm (5' 11 ) 04/22/2024 1:24 PM EDT Body Mass Index 25.1 04/22/2024 1:24 PM EDT Plan of Treatment Health Maintenance Due Date Last Done Comments COVID-19 Vaccine (#1) 1958 DTaP,Tdap,and Td Vaccines (1 - Tdap) 1972 Zoster Vaccines (1 of 2) 1972 RSV Immunization Patients 60 + Years Old (1 - Risk 60-74 years 1-dose series) 2013 Pneumococcal Vaccine: 65+ Years (2 of 2 - PCV) 04/02/2022 04/02/2021 Cholesterol Screening (Lipid Panel) 06/17/2022 Colorectal Cancer Screening: Colonoscopy 06/17/2022 Depression Screening 06/17/2022 Falls Risk Assessment 06/17/2022 Hepatitis C Screening 06/17/2022 Social Influencers of Health Screening 06/17/2022 Hypertension/CHF/CAD Annual BMP Blood Test 06/19/2022 Influenza Vaccine (#1) 2024 3, 04/04/2022, 04/02/2021 HIB Vaccines Aged Out No longer eligi ble based on patient's age to complete this topic HPV Vaccines Aged Out No longer eligi ble based on patient's age to complete this topic Hepatitis A Vaccines Aged Out No long er eligible based on patient's age to complete this topic Hepatitis B Vaccines Aged Out No long er eligible based on patient's age to complete this topic IPV Vaccines Aged Out No longer eligi ble based on patient's age to complete this topic MMR Vaccines Aged Out No longer eligi ble based on patient's age to complete this topic Meningococcal ACWY Vaccine Aged Out N o longer eligible based on patient's age to complete this topic RSV Immunization Patients Under 20 months Aged Out No longer eligible b ased on patient's age to complete this topic Varicella Vaccines Aged Out No longer eligible based on patient's age to complete this topic Advance Directives Documents on File Type Date Recorded Patient Recreation Specialist Expl anation Health Care Decision (hx) 11/21/2014 AD GAXIOLA DIRECTIVE Health Care Decision (hx) 11/21/2014 AD GAXIOLA DIRECTIVE Health Care Decision (hx) 11/21/2014 AD GAXIOLA DIRECTIVE Health Care Decision (hx) 11/21/2014 AD GAXIOLA DIRECTIVE Health Care Decision (hx) 11/21/2014 AD GAXIOLA DIRECTIVE Health Care Decision (hx) 11/21/2014 AD GAXIOLA DIRECTIVE Health Care Decision (hx) 11/21/2014 AD GAXIOLA DIRECTIVE Health Care Decision (hx) 11/21/2014 AD GAXIOLA DIRECTIVE Health Care Decision (hx) 11/21/2014 AD GAXIOLA DIRECTIVE Health Care Decision (hx) 11/21/2014 AD GAXIOLA DIRECTIVE Health Care Decision (hx) 11/21/2014 AD GAXIOLA DIRECTIVE Health Care Decision (hx) 11/21/2014 AD GAXIOLA DIRECTIVE Health Care Decision (hx) 11/21/2014 AD GAXIOLA DIRECTIVE Health Care Decision (hx) 11/21/2014 AD GAXIOLA DIRECTIVE Health Care Decision (hx) 11/21/2014 AD GAXIOLA DIRECTIVE Health Care Decision (hx) 11/21/2014 AD GAXIOLA DIRECTIVE Health Care Decision (hx) 11/21/2014 AD GAXIOLA DIRECTIVE Health Care Decision (hx) 11/21/2014 AD GAXIOLA DIRECTIVE Health Care Decision (hx) 11/21/2014 AD GAXIOLA DIRECTIVE Health Care Decision (hx) 11/21/2014 AD GAXIOLA DIRECTIVE Health Care Decision (hx) 11/21/2014 AD GAXIOLA DIRECTIVE Health Care Decision (hx) 11/21/2014 AD GAXIOLA DIRECTIVE Health Care Decision (hx) 11/21/2014 AD GAXIOLA DIRECTIVE Health Care Decision (hx) 11/21/2014 AD GAXIOLA DIRECTIVE Health Care Decision (hx) 11/21/2014 AD GAXIOLA DIRECTIVE Health Care Decision (hx) 11/21/2014 AD GAXIOLA DIRECTIVE Health Care Decision (hx) 11/21/2014 AD GAXIOLA DIRECTIVE Health Care Decision (hx) 11/21/2014 AD GAXIOLA DIRECTIVE Health Care Decision (hx) 11/21/2014 AD GAXIOLA DIRECTIVE Health Care Decision (hx) 11/21/2014 AD GAXIOLA DIRECTIVE Health Care Decision (hx) 11/21/2014 AD GAXIOLA DIRECTIVE Health Care Decision (hx) 11/21/2014 AD GAXIOLA DIRECTIVE Health Care Decision (hx) 11/18/2014 AD GAXIOLA DIRECTIVE Health Care Decision (hx) 11/18/2014 AD GAXIOLA DIRECTIVE Health Care Decision (hx) 11/18/2014 AD GAXIOLA DIRECTIVE Health Care Decision (hx) 11/18/2014 AD GAXIOLA DIRECTIVE Health Care Decision (hx) 11/18/2014 AD GAXIOLA DIRECTIVE Health Care Decision (hx) 11/18/2014 AD GAXIOLA DIRECTIVE Health Care Decision (hx) 11/18/2014 AD GAXIOLA DIRECTIVE Health Care Decision (hx) 11/18/2014 AD GAXIOLA DIRECTIVE Health Care Decision (hx) 11/18/2014 AD GAXIOLA DIRECTIVE Health Care Decision (hx) 11/18/2014 AD GAXIOLA DIRECTIVE Health Care Decision (hx) 11/18/2014 AD GAXIOLA DIRECTIVE Health Care Decision (hx) 11/18/2014 AD GAXIOLA DIRECTIVE Health Care Decision (hx) 11/18/2014 AD GAXIOLA DIRECTIVE Health Care Decision (hx) 11/18/2014 AD GAXIOLA DIRECTIVE Health Care Decision (hx) 11/18/2014 AD GAXIOLA DIRECTIVE Health Care Decision (hx) 11/18/2014 AD GAXIOLA DIRECTIVE Health Care Decision (hx) 11/18/2014 AD GAXIOLA DIRECTIVE Health Care Decision (hx) 11/18/2014 AD GAXIOLA DIRECTIVE Health Care Decision (hx) 11/18/2014 AD GAXIOLA DIRECTIVE Health Care Decision (hx) 11/18/2014 AD GAXIOLA DIRECTIVE Health Care Decision (hx) 11/18/2014 AD GAXIOLA DIRECTIVE Health Care Decision (hx) 11/18/2014 AD GAXIOLA DIRECTIVE Health Care Decision (hx) 11/18/2014 AD GAXIOLA DIRECTIVE Health Care Decision (hx) 11/18/2014 AD GAXIOLA DIRECTIVE Health Care Decision (hx) 11/18/2014 AD GAXIOLA DIRECTIVE Health Care Decision (hx) 11/18/2014 AD GAXIOLA DIRECTIVE Health Care Decision (hx) 11/18/2014 AD GAXIOLA DIRECTIVE Health Care Decision (hx) 11/18/2014 AD GAXIOLA DIRECTIVE Health Care Decision (hx) 11/18/2014 AD GAXIOLA DIRECTIVE Health Care Decision (hx) 11/18/2014 AD GAXIOLA DIRECTIVE Health Care Decision (hx) 11/18/2014 AD GAXIOLA DIRECTIVE Health Care Decision (hx) 11/18/2014 AD GAXIOLA DIRECTIVE Care Teams Boring Mill Set Up Operator Vertical Relationship Specialty Start Date End Date Hever Maldonado MD PCP - General Internal Medicine 06/12/20
== END 2024-08-06 09:34 | disposition home or self-care (01) ==
PROVIDERS: PCP Internal Medicine; Visit Provider Urology
DX: Z13.9 Encounter for screening, unspecified (principal); C61 Malignant neoplasm of prostate
CPT/HCPCS: 99213

== ENCOUNTER → 2024-08-06 08:34 | Outpatient (BNVA) | payer MEDICARE, OTHER, SELFPAY | PROVIDERS: PCP Internal Medicine; Visit Provider Urology | DX: C61 Malignant neoplasm of prostate (principal) | CPT/HCPCS: 51798; 81003; 99212 ==

== ENCOUNTER 2025-02-04 11:18 | Outpatient (AMB) | payer MEDICARE, OTHER, SELFPAY ==
--- NOTE | 2025-02-04 11:12 | MHC.OFFVIS ---
Intake Visit Reasons: 6m/PSA/PVR/UA Intake Note: patient is present for 6 MO for Model And Pattern Supervisor PSA done 01/27/25 : 0.2 Urology Medication:TAMSULOSIN Antibiotic Allergy:NONE Blood Thinner:APIXABAN Pt Skilled Required: No Accompanied by: Spouse Allergies Seasonal Allergy (Unknown, Uncoded 08/06/24 08:44) nka HPI Comments Details: Pete is a very pleasant male. He is a patient of Dr. Maldonado. He is seen for the following urologic conditions. - prostate cancer - low volume, favorable intermediate, September 2020 - lower urinary tract symptoms - radiation cystitis - hematuria in setting of anticoagulation Six-month follow-up - 4 years since therapy - 1 episode of hematuria since last visit 09/29 PSA 0.2, T 517, 01/29 PSA 0.1, 08/02 0.2, 01/30 0.2, 08/03 0.2, 01/31 0.2 Continues tamsulosin for lower urinary tract symptoms 6m PSA tele Prostate cancer low volume favorable intermediate risk September 2020 - external beam radiation with short term [facility] Recent Labs - 04/29 PSA <0.1, T 23, 08/31 PSA 0.1 T 844, 12/29 0.1, 04/30 <0.1, 09/01 0.2, T 517, 01/30 0.2 Adenocarcinoma of the prostate (T1c N0 M0, Calion score 3+4, Grade Group 2. PSA at Diagnosis 4.9 on 5AR - NCCN favorable intermediate Prostate cancer was diagnosed Dr De La Fuente 09/27 Family history brother with prostate cancer initial treatment prostatectomy with delayed failure and radiation 6 years after Last [facility] 10/02/20 Histologic type: Adenocarcinoma (acinar type) Calion score: 3+4=7 (left mid medial), 3+3=6 (left base lateral, left base medial, left mid lateral, left apex lateral, right base lateral) Number cores positive: 6 Total number of cores: 12 % of tissue involved: Approximately 15% of all tissue examined Periprostatic fat inv.: Not identified Seminal vesicle inv.: Not identified Perineural inv.: Present LVI: Not identified Initial therapy external beam radiation with short course Gn[facility] - Sister Margaret complete 12/28 - 7800 [address] DNA evaluation performed for mutation negative for BRCA1 and Sosa Plan on surveillance laboratories q.6 months for 5 years COUNTS INCLUDE 234 BEDS AT THE [facility] Medical History Infected sebaceous cyst BPH (benign prostatic hyperplasia) Hypercholesterolemia HTN (hypertension) Obstructive sleep apnea treated with continuous positive airway pressure (CPAP) History of CVA with residual deficit Atrial fibrillation Surgical History Hx of hernia repair Hx of chest tube placement Family History Father Stroke Mother Cancer Sister No problems noted. Sister No problems noted. Sister No problems noted. Sister No problems noted. Sister No problems noted. Sister No problems noted. Brother No problems noted. Brother No problems noted. Brother No problems noted. Brother No problems noted. Daughter No problems noted. Daughter No problems noted. Social History Alcohol intake: current Alcohol intake frequency: a few times a week Advance Directives Date on File: 09/01/20 Review of Systems Const Denies chills and Denies fever(s) Card Reports no additional complaints and Denies syncope Resp Denies cough GI Denies abdominal pain and Denies heartburn Reports as per HPI and Denies change in libido Neuro Denies syncope Psych Denies change in libido Endo Denies change in libido Physical Exam Const General: cooperative, healthy appearing, comfortable and no acute distress Orientation/consciousness: patient oriented x3 HEENT Face and sinus: Yes normal facial exam Mouth: moist mucous membranes Neck Neck: Yes normal visual inspection, Yes full ROM and Yes trachea midline Chest Chest palpation & inspection: normal inspection of the chest Resp Effort & Inspection: normal respiratory effort, able to speak in complete sentences and no respiratory distress GI Inspection: Yes normal to inspection Back/Spine/Pelvis Cervical Spine: normal cervical lordosis Thoracic/Lumbar Spine: thoracic and lumbar spine normal to inspection Skin General skin exam: no rashes or lesions noted Neuro General: patient oriented x3, gait normal, tone normal and moves all extremities Extrem General: Yes normal to inspection and Yes capillary refill normal Assessment & Plan Assessment & Plan (1) Prostate cancer: Comment: 09/27 Favorable Intermediate EXBRT with [address] [place] [address] Code(s): C61 - Malignant neoplasm of prostate Category: Medical Plan Six-month follow-up PSA tele Patient Instructions: This note is constructed using voice recognition software. While every effort has been made to ensure accuracy property condition assessor errors may have been included. Imaging studies, laboratory and physical exam results were discussed and reviewed in detail. No major barriers to patient understanding were identified. An opportunity to ask questions regarding the treatment plan was provided. All questions were answered. The patient expressed understanding and agreement with the above treatment plan. The patient is aware they should contact our office by phone for worsening of their current condition or the appearance of new urologic symptoms. Compliance is encouraged with any medications and followup testing that is ordered. It is a privilege to participate in the urologic care of your patient. If you have any questions or concerns regarding treatment for the above conditions, or other urologic issues, please do not hesitate to contact me. The office telephone contact is [phone]. Sincerely, Dr Jamshid De La Fuente MD, [facility] - Urology Compassionate Specialist Care for the Genitourinary System Coding Level of Care Code Est Pt Level 3 (08698) Complex EM visit Add On G2211 Diagnoses Prostate cancer C61
--- OUTSIDE RECORDS SUMMARY | 2025-02-04 12:31 | XMS_ITS | Clinical Summary ---
Author Organization [facility] Address [address] [place] [address] Phone Care Team Providers Care Electrical Drafter Name Role Phone Unavailable Primary Care Provider Unavailabl e Social History Tobacco Use Types Packs/Day Years Used Date Smoking Tobacco: Never Assessed Education Answer Date Recorded Are you interested in more education? Not on oscar e 11/04/2022 Are you concerned about learning? Not on file 11/04/2022 No 11/04/2022 No 11/04/2022 Digital Access Answer Date Recorded No 12/06/2022 No 12/06/2022 Reliable internet access at home? Not on file 12/06/2022 Device with a working camera? Not on file Sex and Gender Information Value Date Recorded Sex Assigned at Not on file Legal Sex Male 2:22 PM EDT Gender Identity Not on file Sexual Orientation Not on file Plan of Treatment Not on file Medical Devices Not on file Additional Source Comments The information contained in this document represents components of the legal health record. It is not the complete legal health record.[facility]
--- OUTSIDE RECORDS SUMMARY | 2025-02-04 12:31 | XMS_ITS | Clinical Summary ---
Author Organization [facility] Address [address] [place] [address] Care Team Providers Care Malt Liquors Sales Representative Name Role Phone Hever Maldonado Primary Care Provider [phone] Allergies No known active allergies Medications amoxicillin-cla [...] 69 09/11/2020 8:43 AM EST Temperature 36.8 C (98.2 F) 09/11/2020 8:43 AM EST Respiratory Rate 16 09/11/2020 8:43 AM EST [...] DTaP,Tdap,and Td Vaccines (1 - Tdap) 1975 Pneumococcal Vaccine: 50+ Ye ars (1 of 1 - PCV) 2003 Zoster Vaccines (1 of 2) 2003 COVID-19 Vaccine (2 - 2023-2 5 season) 2024 09/05/2020 Alcohol/Substance Use Screening 07/10/2024 Health Care Proxy Review 07/10/2024 Influenza Vaccine (#1) 2025 04/29/2017 RSV Vaccine (60+ years old a nd patients) (1 - 1-dose 75+ series) 2028 Hepatitis B Vaccines Aged Out No long er eligible based on patient's age to complete this topic Insurance MEDICARE [facility] Care Teams Malt Liquors Sales Representative Relationship Specialty Start Date End Date Hever Maldonado PCP - General Internal Medicine 09/07/20
--- OUTSIDE RECORDS SUMMARY | 2025-02-04 12:32 | XMS_ITS ---
Author Name [facility] Organization Unknown Care Team Organization Name Specialty Phone Email Start Date End Da gideon [facility] 05/17/2022 024
--- OUTSIDE RECORDS SUMMARY | 2025-02-04 12:32 | XMS_ITS | Clinical Summary ---
Author Organization [facility] Address [address] [place] [address] Care Team Providers Care Supply Chain Intern Name Role Phone Hever Maldonado MD Primary Care Provider [phone] Allergies No known active allergies Medications Medication [...] 44 08/12/2021 9:27 AM EST Temperature 36.7 C (98 F) 08/12/2021 9:27 AM EST Respiratory Rate - [...] Fall Risk Assessment 2018 Influenza Vaccine (#1) 2025 RSV Adult > 60+ Yrs or Pregn ant (1 - 1-dose 75+ series) 2028 Hepatitis B Vaccines Aged Out No long er eligible based on patient's age to complete this topic RSV Ped < 20 months Aged Out No longe r eligible based on patient's age to complete this topic Care Teams Supply Chain Intern Relationship Specialty Start Date End Date Hever Maldonado MD [address] [address] PCP - General Internal Medicine 09/16/20
--- OUTSIDE RECORDS SUMMARY | 2025-02-04 12:32 | XMS_ITS | Clinical Summary ---
Author Organization [facility] Address [address] [place] [address] Phone Care Team Providers Care International Logistics Manager Name Role Phone Hever Maldonado MD Primary Care Provider Allergies Active Allergy Reactions Criticality Noted Date Comments Iodinated Contrast Media Nausea And Vomiting Medications calcium carbonate/vitam in D3 (CALCIUM 500 + D ORAL) Take 1 Tablet by mouth 2 Times Daily. Active multivitamin with minerals (CENTRUM) tablet Take 1 Tablet by mouth daily. Active metoprolol tartrate (LOPRESSOR) 50 mg tablet Take 0.5 tablets (25 mg total) by mouth 2 (two) times a day. Active atorvastatin (LIPITOR) 40 mg tablet Take 1 tablet (40 mg total) by mouth 1 (one) time each day. Active tamsulosin (FLOMAX) 0.4 mg 24 hr capsule Take 1 capsule by mouth daily. Take 30 mins after same meal every day. Active furosemide (LASIX) 20 mg tablet Take 1 tablet (20 mg total) by mouth 1 (one) time each day. Active apixaban (ELIQUIS) 5 mg tablet Take 1 tablet (5 mg total) by mouth 2 (two) times a day. Active Active Problems Problem Noted Date Diagnosed Date Abnormal EKG 12/10/2024 Assessment & Plan (12/10/2024 3:16 PM EDT): Patient's EKG today showing possible inferior infarct with more pronounced T wave inversions. Patient is asymptomatic. We will arrange for an echocardiogram. He is on cardioprotective medical therapy with statin and beta-annette. No changes to his medications at this time. If he were to develop any symptoms we would consider completing a stress test. I have reviewed with the patient the importance of a heart healthy lifestyle which includes eating a low-fat low-salt diet, getting regular exercise, maintaining a healthy weight, not smoking, and following up with routine medical care. Hyperlipidemia 03/28/2023 Overview (12/10/2024): Assessment & Plan (12/10/2024 3:16 PM EDT): Patient's last LDL cholesterol 44. This is at goal. Continue with statin as prescribed. JASIEL on CPAP 03/28/2023 Overview (09/06/2024): Last Assessment & Plan: The patient reports compliance with CPAP and is aware of the importance of continued use. Tricuspid regurgitation 03/28/2023 Edema 06/13/2022 Overview (09/06/2024): Last Assessment & Plan: He still has a little bit of leg edema left leg worse than right leg. We will continue to monitor. He will continue to use his Lasix, avoid salt and use compression stockings as best as he can. If this worsens he will let us know. He did have his echocardiogram and this showed no changes in his mitral and tricuspid regurgitation. Hypertension 10/06/2020 Overview (12/10/2024): Assessment & Plan (12/10/2024 3:16 PM EDT): Blood pressure is under excellent control with a reading today of 122/80. Mitral regurgitation 10/06/2020 Overview (12/10/2024): Assessment & Plan (12/10/2024 3:16 PM EDT): Patient is history of mitral regurgitation as well as mild tricuspid regurgitation. Last echocardiogram was stable. He denies any clinical symptoms of heart failure and appears euvolemic on physical examination. Permanent atrial fibrillation (CMS/HCC V24, CMS/ HCC V28) 10/06/2020 Assessment & Plan (12/10/2024 3:16 PM EDT): Patient has history of chronic atrial fibrillation which is adequately rate controlled on present dose of metoprolol. He continues on Eliquis for anticoagulation. His [id number] score is 5 representing a 7.2% risk for thromboembolism. No changes to his medical therapies today and he will continue on metoprolol and Eliquis as prescribed. History of CVA with residual deficit 10/06/2020 Overview (09/06/2024): Right sided upper and lower extremity deficits Resolved Problems Problem Noted Date Diagnosed Date Resolved Date Epistaxis 10/06/2022 12/10/2024 Overview (09/06/2024): Last Assessment & Plan: We did discuss his epistaxis. Fortunately at this point he has not had any nosebleeds for about 2 weeks. He was seen by ENT and had a vessel cauterized. We did discuss Watchman devices. We did discuss the pros and cons of these and how they compared to oral anticoagulants. Fortunately, at this point he is doing well back on his Eliquis. We will continue him on Eliquis and will monitor for further bleeding. If he has any bleeding I have told him to follow-up with ENT to see if he needs to have another cauterization. If they are not able to cauterize any vessels or find any bleeding polyps then we will need to consider a Watchman procedure on him. They have done some reading on this online and they will call me if they have any questions. Encounters Date Type Department Care Team Description 12/10/2024 2:40 PM EDT Office Visit [facility] [address] [place] [address] Carla Fitzpatrick NP Permanent atrial fibrillation (CMS/HCC V24, CMS/HCC V28) (Primary Dx); Primary hypertension; Mitral valve insufficiency, unspecified etiology; Mixed hyperlipidemia; Abnormal EKG from Last 3 Months Surgical History Surgery Date Site/Laterality Comments HERNIA REPAIR 2014 Right PROCEDURE: HISTORICAL HERNIA REPAIR/ING Medical History Medical History Date Comments BPH (benign prostatic hyperplasia) DX:BPH (benign prostatic hyperplasia) Epistaxis 10/06/2022 Last Assessment & Plan: We did discuss his epistaxis. Fortunately at this point he has not had any nosebleeds for about 2 weeks. He was seen by ENT and had a vessel cauterized. We did discuss Watchman devices. We did discuss the pros and cons of these and how they compared to oral anticoagulants. Fortunately, at this point he is doing well back on his Eliquis. We will continue him on Juliet Family History Medical History Relation Name Comments COPD Brother Stroke Father Breast cancer Mother Stroke Sister Relation Name Status Comments Brother Father Mother Sister Social History Tobacco Use Types Packs/Day Years Used Date Smoking Tobacco: Never Smokeless Tobacco: Never Alcohol Use Standard Drinks/Week Comments Yes 0 (1 standard drink = 0.6 oz pur e alcohol) 6-8 beers weekly Sex and Gender Information Value Date Recorded Sex Assigned at Not on file Legal Sex Male 11:44 PM EST Gender Identity Not on file Sexual Orientation Not on file Obstetrics History Last Filed Vital Signs Vital Sign Reading Time Taken Comments Blood Pressure 122/80 12/10/2024 2:56 PM EDT Pulse 61 12/10/2024 2:56 PM EDT Temperature - - Respiratory Rate - - Oxygen Saturation 98% 12/10/2024 2:56 PM EDT Inhaled Oxygen Concentration - - Weight 81.6 kg (180 lb) 12/10/2024 2:56 PM EDT Height 181.6 cm (5' 11.5 ) 12/10/2024 2:56 PM ED T Body Mass Index 24.76 12/10/2024 2:56 PM EDT Plan of Treatment Health Maintenance Due Date Last Done Comments Zoster Vaccines (1 of 2) 2003 Pneumococcal Vaccine: 50+ Years (2 of 2 - PCV) 04/02/2022 04/02/2021, 05/10/2014 Cholesterol Screening (Lipid Panel) 06/17/2022 Colorectal Cancer Screening: Colonoscopy 06/17/2022 Falls Risk Assessment 06/17/2022 Hepatitis C Screening 06/17/2022 Medicare Annual Wellness Visit 06/17/2022 Social Influencers of Health Screening 06/17/2022 Hypertension/CHF/CAD Annual BMP Blood Test 06/19/2022 Depression Screening 07/10/2024 COVID-19 Vaccine ( season) 2024 04/18/2024, 04/17/2023, 04/04/2022, Additional history exists Influenza Vaccine (#1) 2025 , 04/17/2023, 04/04/2022, Additional history exists DTaP,Tdap,and Td Vaccines (2 - Td or Tdap) 09/25/2033 09/26/2023 RSV Immunization Adult Patients Completed 04/17/2023 HIB Vaccines Aged Out No longer eligi [...] patient's age to complete this topic Meningococcal B Vaccine Aged Out No l onger eligible based on patient's age to complete this topic RSV Immunization Patients Under 20 months Aged Out No longer eligible based on patient's age to complete this topic Varicella Vaccines Aged Out No longer eligible based on patient's age to complete this topic Procedures Procedure Name Priority Date/Time Associated Diagnosis Comments ECG 12-LEAD Routine 12/10/2024 3:26 PM EDT Permanent atrial fibrillation (CMS/HCC V24, CMS/HCC V28) from Last 3 Months Results * ECG 12 lead (12/10/2024 3:26 PM EDT) Ventricular Rate ECG 68 BPM GEMUSE Atrial Rate 159 BPM GEMUSE QRS Duration 94 ms GEMUSE Q-T Interval 392 ms GEMUSE QTc 416 ms GEMUSE R Royal 47 degrees GEMUSE T Royal -21 degrees GEMUSE ECG Interpretation Atrial fibrillation Inferior infarct , age undetermined Abnormal ECG When compared with ECG of 14-MAY-2021 10:10, Possible Inferior infarct is now Present T wave inversion more evident in Inferior leads Confirmed by EDILSON DOWNING ([id number]) on 12/10/2024 5:37:49 PM GEMUSE 12/10/2024 3:05 PM EDT 12/10/2024 5:37 PM EDT us Carla Fitzpatrick WORKERS COMPENSATION CLAIMS ASSISTANT ECG ORDERABLES Edited Resul t - Final GEMUSE from Last 3 Months Insurance MEDICARE Advance Directives Documents on File Type Date Recorded Patient Delivery Crew Worker Expl anation Health Care Decision (hx) 11/21/2014 [...] (hx) 11/18/2014 AD GAXIOLA DIRECTIVE Care Teams International Logistics Manager Relationship Specialty Start Date End Date Hever Maldonado MD [address] [place] [address] PCP - General Internal Medicine 11/25/24
== END 2025-02-04 11:51 | disposition home or self-care (01) ==
LOC: HO.HUSH 11:19
PROVIDERS: PCP Internal Medicine; Visit Provider Urology
DX: C61 Malignant neoplasm of prostate (principal); Z13.9 Encounter for screening, unspecified
CPT/HCPCS: 99213; G2211

== ENCOUNTER → 2025-02-04 11:18 | Outpatient (BNVA) | payer MEDICARE, OTHER, SELFPAY | PROVIDERS: PCP Internal Medicine; Visit Provider Urology | DX: C61 Malignant neoplasm of prostate (principal); Z13.9 Encounter for screening, unspecified | CPT/HCPCS: 81003; 99212 ==